=== PATIENT | male | born 1990 | race Caucasian/White ===

== ENCOUNTER 2018-10-06 02:58 | Inpatient (IN) ==
--- NOTE | 2018-10-06 03:20 | Emergency Department Note ---
Overdose HPI - General Chief Complaint: ED Overdose Stated Complaint: SI Time Seen by Provider: 10/06/18 02:59 Source: patient Mode of arrival: EMS Limitations: no limitations Nursing Notes Reviewed: Yes Vital Signs Reviewed: Yes - History of Present Illness HPI Narrative: 28-year-old male presents to the emergency Department via transfer from our [facility] for evaluation of an overdose with suicidal intent. Patient states he took an unknown amount of Seroquel, hydroxyzine, indomethacin. He denies suicidal ideation upon here however he states that he was suicidal at that time. When I asked him why he took the medications he states "I do not know, seem like a good idea". Patient denies any complaints at this time. No recent illness. He states he is thirsty but otherwise he has no symptoms. Pt Subjective Complaint: intentional overdose Onset (ago): hour(s) Time of Ingestion: 22:30 other Multiple Substances: Yes - Related Data Previous Rx's Medication Instructions Recorded Quetiapine Fumarate [Seroquel] 50 mg PO HS PRN #15 tablet 09/15/18 hydrOXYzine pamoate [HydrOXYzine 25 mg PO TID PRN #30 capsule 09/15/18 Pamoate] Allergies Allergy/AdvReac Type Severity Reaction Status Date / Time anesthetics Allergy Anaphylaxis Uncoded 09/14/18 12:27 All systems ED: reviewed and negative except as stated. Review of Systems: As Per HPI Constitutional: Denies: fever, chills ENT ED: Denies: throat pain Cardiovascular: Denies: chest pain Gastrointestinal: Denies: abdominal pain Neurological: Denies: headache Psychiatric: Reports: anxiety, depression, suicidal thoughts Past Medical History - Past Medical History Attestation: Yes The following information was validated with the patient. Source: patient Medical history: Reports: other Surgical history: Reports: appendectomy Psychiatric history: Reports: no psych history - Social History Smoking Status: Never smoker Smokeless Tobacco Status: Yes (chew) Alcohol use: Reports: rarely Drug use: Reports: none Physical Exam - General Limitations: no limitations General appearance: alert, in no apparent distress - Head Head exam: atraumatic, normocephalic, normal inspection - Eye Eye exam: Present: normal appearance - ENT ENT exam: mucous membranes moist - Neck Neck exam: Present: normal inspection, full ROM, trachea midline - Chest Chest inspection: Present: normal inspection, symmetric chest wall rise - Respiratory Respiratory exam: Present: normal lung sounds bilaterally - Cardiovascular Cardiovascular exam: Present: regular rate, normal rhythm, normal heart sounds - Neurological Exam Neurological exam: Present: alert, oriented X3 - Psychiatric Psychiatric exam: Present: normal affect, normal mood - Skin Skin exam: Present: warm, dry, intact, normal color Course Course Narrative: -year-old male no acute distress. He is neurologically intact, GCS 15. He is very pleasant. Physical examination is unremarkable. Previous facility patient had labs that were unremarkable, slightly low potassium at 3.1. EKG was completed at previous facility which showed a sinus rhythm, QRS 80, QTC 447, no evidence of ectopy or abnormality. I called and spoke with poison controlBailey, care for these medications patient's only symptom that he can supportive. At this time patient has no complaints other than being thirsty, we will monitor and we will have one a assess patient. There is no timeframe for medical monitoring. Poison control. Seroquel 25 mg, indomethacin 25 mg, hydroxyzine 25 mg. Unknown amount of each. He states he was compliant on medications prior to tonight. Hydroxyzine was filled on 09/15, there was 30 total when first filled; the indomethacin was filled on 09/23 there was 20; this Seroquel was filled on 09/22 and there were 60 when filled. Spoke with [facility], medically cleared, we will evaluate [facility] to the patient to their unit for psychiatric care Vital Signs Temperature 98.8 F 10/06/18 03:02 Pulse Rate 80 10/06/18 03:02 Respiratory Rate 16 10/06/18 03:02 Blood Pressure 138/80 10/06/18 03:02 O2 Sat by Pulse Oximetry 98 10/06/18 03:02 Temperature 98.8 F 10/06/18 03:02 Pulse Rate 80 10/06/18 03:02 Respiratory Rate 16 10/06/18 03:02 Blood Pressure 138/80 10/06/18 03:02 O2 Sat by Pulse Oximetry 98 10/06/18 03:02 Oxygen Delivery Oxygen Delivery Room Air Disposition Clinical Impression: Suicide attempt by substance overdose Qualifiers: Encounter type: initial encounter Qualified Code(s): T65.92XA - Toxic effect of unspecified substance, intentional self-harm, initial encounter Disposition: Admitted As Inpatient Condition: Fair Time of Disposition: 05:30 Attestation Statement - Attestation Attestation: Dr. Argueta note: Patient seen in conjunction with BEN Nolasco. Please see her charting for complete documentation. Spent [id number] time with the patient and agree with patient's treatment and disposition. Patient due to polysubstance overdose hours ago presented to an outside facility a facility where he is medically cleared and sent to us for suicidal ideation. Labs been reviewed. No medical symptoms on arrival. Did not overdose with intent to kill himself tonight due to chronic anxiety which has grown weary of so decided to end it this evening. Accepted by the psychiatrist Dr. Cao at approximately 4:[address] Berumen conversation with the psychiatric nurse who evaluated the patient in the ER. Medically stable at time of admission and has been pink slipped
[2018-10-06] MEDS ORDERED: Mag Hydrox/Al Hydrox/Simeth 30 ML UDC PO PRN (05:30)
[2018-10-06] MEDS ORDERED: *HR* LORazepam 2 MG/ML VIAL IM PRN (05:30)
[2018-10-06] MEDS ORDERED: MOM Conc 10 ML UD.LIQ PO PRN (05:30)
[2018-10-06] MEDS ORDERED: hydrOXYzine pamoate 25 MG CAPSULE PO PRN (05:30)
[2018-10-06] MEDS ORDERED: Haloperidol Lactate 5 MG/ML VIAL IM PRN (05:30)
[2018-10-06] MEDS ORDERED: Ibuprofen 400 MG TABLET PO PRN (05:30)
[2018-10-06] MEDS ORDERED: *HR* LORazepam 1 MG TABLET PO PRN (05:30)
[2018-10-06] MEDS ORDERED: traZODone 50 MG TABLET PO PRN (05:30)
--- NOTE | 2018-10-06 12:28 | Psychiatry History & Physical ---
Date of Encounter: 10/06/18 Time of Encounter: 12:18 History of Present Illness Patient Stated Chief Complaint: overdose Medicare Admission Attestation: For traditional Medicare patients the provided hospital inpatient services are reasonable and necessary and in the case of services not specified as inpatient-only under 42 CFR 419.22 (n), that they are appropriately provided as inpatient services in accordance 42 CFR 412.3. For Critical Access Hospital the patient may reasonably be expected to be discharged or transferred to a hospital within 96 hours after admission to the Critical Access Hospital. Admitted From: Home Plans for Post Hospital Care: Home History of Present Illness: Mr. Holland is a 28 year old male who was admitted following an overdose of Seroquel and Vistaril. Client was on [facility] a couple of weeks ago following an overdose of a relative's medications. At the time client stated he was having trouble sleeping and just took the pills to help him sleep. He was discharged with prn Seroquel and Vistaril and given a follow up appointment to see a psychiatrist and therapist. Client lives with his aunt and her family. This fiction and nonfiction prose writer spoke with client's aunt today with client in the room. Client's aunt indicated client is depressed and that she believes both overdose attempts were intentional (client also denying current OD was an attempt at self harm and states he just wanted to get rid of a headache). According to client's aunt he took approx 10-15 pills from each bottle. Client told his aunt to call 911 after he did this due to feeling weird. Aunt states client can return to live with her and that she will lock up his medications but that he needs to get help first. Client was due to see the psychiatrist for the first time tomorrow so this appointment will need to be pushed out. Client states he has already seen a therapist a couple of times. Client is very unhappy with his family for saying he needs help and refused to say goodbye to them on the phone. He also terminated the interview with this fiction and nonfiction prose writer after the phone conversation and said he was just going to sleep for the three days he has to stay here. Minimally cooperative. Also seems to be lower functioning. Client denied any physical health problems or AOD use. Client's aunt did say client's father of an overdose that the family believes was intentional. Client has also lost a couple of other relatives he was close to. Discussed starting an antidepressant with client but he got up and walked out. Will order Zoloft for the morning to see if he might be interested in taking something after he has had a night to think about it. Past Med Surg Social Fam HX - Past Medical History Medical history: other - Past Psychiatric History Psychiatric history: Reports: depression, prior suicide attempt, previous psychiatric hospitalization Family psychiatric history: Yes Family Psychiatric History Details: father Family History of Suicide: Completed Family Suicide History Details: father-overdose family believes was intentional - Past Surgical History Surgical History: appendectomy - Social History Smoking Status: Never smoker Smokeless Tobacco Status: Yes (chew) Alcohol use: rarely Drug use: none Medications & Allergies Quetiapine Fumarate [Seroquel] 50 mg PO HS PRN #15 tablet 09/15/18 [Rx] hydrOXYzine pamoate [Vistaril] 25 mg PO TID PRN #30 capsule 09/15/18 [Rx] Allergy/AdvReac Type Severity Reaction Status Date / Time anesthetics Allergy Anaphylaxis Uncoded 09/14/18 12:27 Review of Systems Constitutional: Denies: fever, chills, weakness, weight change Eyes: Denies: eye pain, vision change Ears, Nose, Throat: Denies: ear pain, throat pain, dental pain, hearing loss, congestion Cardiovascular: Denies: chest pain, palpitations, dyspnea on exertion Respiratory: Denies: cough, dyspnea, wheezes Gastrointestinal: Denies: abdominal pain, nausea, vomiting, diarrhea, constipation Genitourinary male: Denies: urgency, dysuria, frequency, genital lesions Musculoskeletal: Denies: joint swelling, joint pain Integumentary: Denies: rash, lesions, pruritus Neurological: Denies: headache, weakness, numbness, memory loss Endocrine: Denies: fatigue, heat or cold intolerance Hematologic/Lymphatic: Denies: easy bruising, lymphadenopathy Allergic/Immunologic: Denies: urticaria, itchy eyes Exam - HEENT Head exam IM: Present: atraumatic Eye exam IM: Present: EOMI, normal appearance, PERRL ENT exam IM: Present: normal exam - Neurological Neurological exam: Present: CN II-XII intact - Respiratory Respiratory exam IM: Present: CTAB - GI/Abdominal GI/Abdominal exam IM: Present: normal bowel sounds, soft. Absent: tenderness - Extremities Extremities exam IM: Present: full ROM - Skin Skin exam IM: Present: dry, warm - Constitutional Vitals: Temp Pulse Resp BP Pulse Ox 98.2 F 79 16 112/72 98 10/06/18 05:48 10/06/18 05:48 10/06/18 05:48 10/06/18 05:48 10/06/18 05:48 General appearance: age & developmentally appropriate - Musculoskeletal Gait: normal Station: relaxed Strength & Tone: normal for patient - Psychiatric Patient Orientation: Yes Person, Yes Time, Yes Place Level of alertness: Alert Behavior: uncooperative, guarded Psychomotor activity: Normal Eye Contact: Maintains Eye Contact Mood Description: Angry Affect description: congruent with mood, full range Speech Volume: Normal Speech pattern: normal rate, normal rhythm, normal tone, fluent, spontaneous Language & Vocabulary: consistent with education Thought Process: [place] Thought Content: Yes Suicidal ideation, No Homicidal ideation, No Overt delusions Perceptual Disturbances: No Auditory hallucinations, No Visual hallucinations Attention Span Ability: Capable of Focused Attention Memory Description: Grossly Intact Patient Reliability: Not Reliable Historian Fund of knowledge: Yes below average Intelligence Estimate: Below Average Judgment: Poor Insight: Minimal Assessment and Plan (1) Major depression Current visit: Yes Status: Acute Plan: Admit inpatient for safety and stabilization, Close observation, Suicide Precautions per unit protocol, Encourage participation in unit milieu, Group Therapy, Monitor sleep, Monitor appetite Risks, benefits, side effects, alternatives discussed w/pt: Yes Patient agreeable to treatment: Yes Plans for Post Hospital Care: Home Estimated Length of Stay (Days): 4 Qualifiers: Major depression recurrence: recurrent Active/Remission status: currently active Major depression episode severity: severe Psychotic features: without psychotic features Qualified Code(s): F33.2 - Major depressive disorder, recurrent severe without psychotic features
--- NOTE | 2018-10-07 12:19 | Discharge Summary ---
Date of Encounter: 10/07/18 Time of Encounter: 12:06 Diagnosis - Discharge Diagnosis (1) Major depression Status: Acute Qualifiers: Major depression recurrence: recurrent Active/Remission status: currently active Major depression episode severity: severe Psychotic features: without psychotic features Qualified Code(s): F33.2 - Major depressive disorder, recurrent severe without psychotic features Medications - Discharge Medications Indomethacin 25 mg PO Q6H PRN 10/06/18 [History] Allergy/AdvReac Type Severity Reaction Status Date / Time anesthetics Allergy Anaphylaxis Uncoded 10/06/18 14:46 Provider Date of admission: 10/06/18 13:45 Primary care physician: PCP NONE Discharging clinician: Lynn Hayes Psychiatry Exam - Constitutional Vitals: Temp Pulse Resp BP Pulse Ox 98.2 F 82 16 113/71 96 10/06/18 21:35 10/06/18 21:35 10/06/18 21:35 10/06/18 21:35 10/06/18 21:35 General appearance: age & developmentally appropriate - Musculoskeletal Gait: normal Station: relaxed Strength & Tone: normal for patient - Psychiatric Patient Orientation: Yes Person, Yes Time, Yes Place Level of alertness: Alert Behavior: calm, cooperative Psychomotor activity: Normal Eye Contact: Maintains Eye Contact Mood Description: Euthymic/stable Affect description: congruent with mood, full range Speech Volume: Normal Speech pattern: normal rate, normal rhythm, normal tone, fluent, spontaneous Language & Vocabulary: consistent with education Thought Process: [place] Thought Content: No Suicidal ideation, No Homicidal ideation, No Overt delusions Perceptual Disturbances: No Auditory hallucinations, No Visual hallucinations Attention Span Ability: Capable of Focused Attention Memory Description: Grossly Intact Patient Reliability: Questionable Historian Fund of knowledge: Yes below average Intelligence Estimate: Below Average Judgment: Limited Insight: Partial Hospital Course Hospital course: Mr. Holland is a 28 year old male who was admitted following an overdose of his home medications. This was client's second overdose in a short amount of time. Client is lower functioning. Although he denies being significantly depressed his aunt feels he has been depressed for a while. Client was initially very resistant to being in the hospital. He has refused all meds and he has refused to engage with staff. However, on eval today he was far different. He has decided to return home to [place] and this decision has really seemed to help his mood. This typewriter operator automatic called and spoke with his aunt who verified that being homesick is likely the main cause of his depression. She has been worried about him being homesick for a while. Client's aunt reported all of client's friends are in [place] and that being back in his home environment will be a good thing for him. Client plans to live with his sister whom he has lived with before and client's aunt states this is a safe and supportive environment for him. Client states he only left [place] to help out his aunt but that she really does not need his help anymore. Wants to return home. Client spoke with aunt in this typewriter operator automatic's presence. She asked him if he thought she would be mad if he returned to [place] and client admitted this was something he has been worried about. Client's aunt told him she just wanted him to be happy and that she was not upset at all that he wanted to return home. Client was all smiles after hearing this. Client states his sister plans to drive up from [place] to get him tomorrow. Aunt states client is welcome to stay with her tonight or however long is needed until sister is able to get him. Client has not taken any medications in the hospital and denies wanting any. States he feels much better being off the Seroquel and Vistaril and does not think he needs an antidepressant. Will give him resources to follow up with in [place] should he change his mind after discharge. Client is denying SI, intent, or plan today. States he "learned my lesson" and has no plans to overtake medications again. Denies HI, AH,VH. Bright, reactive, and future oriented today. 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 Looks very different than yesterday and appears stable for discharge. - Time Spent with Patient Total time spent providing and/or coordinating discharge services: Greater than 30 minutes Assessment and Plan - Patient/Caregiver Discharge Instructions Activity: resume usual activities as tolerated Diet: regular diet - Follow up Plan Follow up with: Kelsy Ghosh [Outside] - 10/07/18 2:00 pm (You have an appointment scheduled with Hyacinth Garces on Saturday, October 07, 2018 at 2:00 PM for Counseling and Case Management. You have an appointment scheduled for Monday, October 29, 2018 at 9:[address] Robert Nance D.O. for medication management. Please contact the office at least 24 hours in advance if you are unable to keep your appointment(s). ) Functional capacity at discharge: independent ambulation Overall status at discharge: Stable Disposition: Home, Self-Care Quality - Multiple Antipsychotics Patient discharged on 2 or more antipsychotic medications: No Procedures - Procedures Procedures: Medication Management, Crisis Stabilization, Supportive Therapy, Group Therapy
[2018-10-07 13:01] VITALS: BP 116/70
== END 2018-10-07 13:05 | disposition home or self-care (01) | DRG 751 ==
LOC: 1ANU 02:58 → EMEROOARM 02:58 → 1ANU 05:39
PROVIDERS: ADMIT Psychiatry & Neurology Psychiatry; ATTEND Psychiatry & Neurology Psychiatry